=== PATIENT | female | born 1995 | race Caucasian/White ===

== ENCOUNTER 2019-01-11 09:40 | Emergency (ER) | payer BC, SELFPAY ==
[2019-01-11 09:41] VITALS: BP 133/76; PULSE 90; RESP 15; TEMP 36.1; O2SAT 98; BMI 23.4
[2019-01-11 09:58] VITALS: BP 120/74; PULSE 79; RESP 14; TEMP 37.2; O2SAT 99
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
[2019-01-11] MEDS: 0.9% Normal Saline 1,000 ML 1000 ML IV (10:50)
[2019-01-11 10:58] LABS: Absolute Lymphocyte Count 7.49 X10^3/uL (0.83-4.51); Absolute Neutrophil Count 2.3 X10^3/uL (2.0-7.7); Basophil# 0.04 X10^3/uL; Basophil% 0.4 % (0-1); Eosinophil# 0.02 X10^3/uL; Eosinophils% 0.2 % (0-5); Hematocrit 36.4 % (37-47); Hemoglobin 12.3 g/dL (12.0-15.0); Lymphocyte # 7.49 X10^3/ul (4.0); Lymphocyte % 72.8 % (19-41); Mean Corp Hgb Conc 33.8 g/dL (32-36); Mean Corpuscular Volume 88.8 fL (81-99); Mean Platelet Vol. 11.1 fl (6.2-12.0); Monocyte# 0.41 X10^3/uL; NRBC Flagged by Analyzer 0 % (0-5); Neutrophil # 2.32 X10^3/uL (2.7-7.7); Neutrophil % 22.5 % (47-70); POSITIVE DIFFERENTIAL YES; POSITIVE MORPHOLOGY YES; Platelet Count 155 K/mm3 (150-450); RBC Distribution Width CV 12.9 % (11.6-14.6); RBC Distribution Width SD 41.8 fl (35.1-43.9); White Blood Count 10.3 K/mm3 (4.4-11.0)
[2019-01-11 11:06] LABS: Differential Indicated SCAN CRITERIA MET
[2019-01-11 11:12] LABS: ALB/GLOB Ratio 1.2 RATIO (0.9-2.4); AST(SGOT) 205 U/L (15-37); Alanine Aminotransfer ALT/SGPT 374 U/L (13-56); Alkaline Phosphatase 171 U/L (45-117); Anion Gap 6 (5-15); BUN 9 mg/dL (7-18); BUN/Creat Ratio 10.3 RATIO (10-20); Calcium,Total 8.7 mg/dL (8.5-10.1); Chloride 111 mmol/L (98-107); Creatinine, Serum 0.88 mg/dL (0.55-1.02); EST Glomerular Filtration Rate 86 mL/min (>60); Est Glom Filt Rate - Afr Amer 104 mL/min (>60); Estimated Creatinine Clearance 87.32 ml/min; Globulin 3.2 g/dL (2.2-4.2); Glucose 87 mg/dL (74-106); Lipase 101 U/L (73-393); Potassium 3.9 mmol/L (3.5-5.1); Protein, Total 7.2 g/dL (6.4-8.2); Sodium Level 144 mmol/L (136-145)
[2019-01-11 11:22] LABS: Internal QC Validated? YES +Cl - CLEAR BKGD
[2019-01-11 11:23] LABS: Pregnancy, Serum, hCG Quali. NEGATIVE Negative
[2019-01-11 11:29] LABS: Pathologist Review May foll; Reactive Lymphocyte 3+
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
[2019-01-11 12:02] VITALS: BP 115/83; PULSE 78; RESP 16; O2SAT 99
== END 2019-01-11 12:57 | disposition home or self-care (01) ==
PROVIDERS: Emergency Provider Physician Assistant Medical; Family Provider Pediatrics; PCP Pediatrics
DX: S00.03XA Contusion of scalp, initial encounter (principal); S60.512A Abrasion of left hand, initial encounter; S60.511A Abrasion of right hand, initial encounter; S80.212A Abrasion, left knee, initial encounter; S80.211A Abrasion, right knee, initial encounter; V48.5XXA Car driver injured in noncollision transport accident in traffic accident, initial encounter; Y93.9 Activity, unspecified; Y92.9 Unspecified place or not applicable; Y99.9 Unspecified external cause status; B27.90 Infectious mononucleosis, unspecified without complication
CPT/HCPCS: 70450; 74177; 80053; 83690; 84703; 85025; 96360; 99283; J7030; Q9967; A4216

== ENCOUNTER → 2019-03-19 17:11 | Outpatient (CLI) | payer BC, SELFPAY ==
[2019-03-19 17:11] VITALS: BMI 23.4
== END ==
PROVIDERS: Family Provider Pediatrics; PCP Pediatrics; Referring Provider Chiropractor; Visit Provider Chiropractor
DX: S13.9XXA Sprain of joints and ligaments of unspecified parts of neck, initial encounter (principal); X58.XXXA Exposure to other specified factors, initial encounter; Y93.9 Activity, unspecified; Y92.9 Unspecified place or not applicable; Y99.9 Unspecified external cause status
CPT/HCPCS: 72040

== ENCOUNTER 2020-09-09 11:18 | Outpatient (RCR) | payer BC, SELFPAY ==
[2019-04-22 16:45] VITALS: BMI 23.4
== END 2020-10-26 23:59 ==
LOC: IMMUN 11:18
PROVIDERS: PCP Student in an Organized Health Care Education/Training Program; Referring Provider Family Medicine; Visit Provider Family Medicine
DX: Z23 Encounter for immunization (principal)
CPT/HCPCS: 0001A; 0002A; 91300

== ENCOUNTER → 2024-03-12 | Outpatient (CLI) | payer OTHER, SELFPAY ==
--- NOTE | 2024-03-12 07:58 | RAD_ITS ---
INDICATION: Encounter for fertility testing EXAMINATION/TECHNIQUE: Routine hysterosalpingography was performed. Total Fluoroscopic Time: 42 seconds AND number of Fluoroscopic Images: 4 OR Radiation dosage index: 5.3 mGy. COMPARISON: No relevant prior comparison study available FINDINGS: The uterine cavity contour is unremarkable. There are no filling defects or abnormalities. Both fallopian tubes are patent with free peritoneal spillage bilaterally. RAD/Salpingogram IMPRESSION: Negative hysterosalpingogram. Electronically Signed: Krish Faustin MD at 10:00 EDT ,
[2024-03-12 08:30] VITALS: BP 104/42; PULSE 65; RESP 14; O2SAT 99
--- NOTE | 2024-03-12 08:34 | PCM.OP.PRO ---
Procedure Report Date of Procedure: 03/12/24 Patient was taken to radiology suite. Consent signed. Time out performed. Speculum placed in the vagina. Cervix cleaned with betadine. Anterior lip of the cervix grasped with tenaculum. HSG catheter placed, dye injected slowly under low pressure. Dr. Faustin present performing fluoroscopy gudance and interpretation. When he deemed procedure complete, instruments removed and vaginal sweep completed. Patient tolerated well. Pre procedure diagnosis- Recurrent miscarriages postprocedure diagnosis- same procedure: hysterosalpingogram. complications -none procedure perfomred by [facility] specimens-none ebl- < 5 cc
[2024-03-12 08:38] VITALS: BP 105/67; PULSE 60; RESP 14; O2SAT 100
[2024-03-12 08:45] VITALS: BP 104/63; PULSE 53; RESP 16; O2SAT 100
[2024-03-12 08:52] VITALS: BP 107/52; PULSE 58; RESP 14; O2SAT 100
--- NOTE | 2024-03-12 09:05 | NURSING ---
At approx 0830 MONA Robles in to see pt. Pt pale, feeling lightheaded. She had gotten up and used the restroom after having a salpingogram. Reported having blood clots and bleeding post procedure. Pt's vital signs taken, b/p noted to be low. Pt able to respond appropriately to all questions. Advised to remain laying flat and that RN would check on her in 10 minutes.
== END | disposition home or self-care (01) ==
PROVIDERS: PCP Student in an Organized Health Care Education/Training Program; Referring Provider Obstetrics & Gynecology; Visit Provider Obstetrics & Gynecology
DX: Z31.41 Encounter for fertility testing (principal)
CPT/HCPCS: 58340; 74740